=== PATIENT | female | born 1995 | race American Indian/Alaskan Native ===

== ENCOUNTER 2016-12-28 11:15 | Emergency (ER) | payer SELFPAY ==
[2016-12-28 11:39] VITALS: BP 123/62
[2016-12-28 12:26] LABS: Bacteria,Urine 1+ /HPF (Negative); Bilirubin,Urine NEG (Negative); Blood,Urine NEG (Negative); Ketones,Urine NEG (Negative); Leukocyte Esterase,Urine MOD (Negative); Mucus,Urine 2+ /HPF; Nitrite,Urine NEG (Negative); Protein,Urine <15 mg/dL mg/dL (Negative)
--- NOTE | 2016-12-30 01:34 | ED Elopement Review ---
ED Pt Elopement review - Results review Lab results: Laboratory Tests 12/28/16 11:52 Urine Color Yellow Urine Turbidity Clear Urine pH 6.0 Ur Specific [place] 1.026 Urine Protein <15 mg/dl Urine Glucose (UA) Neg Urine Ketones Neg Urine Blood Neg Urine Nitrite Neg Urine Bilirubin Neg Urine Urobilinogen 2.0 Ur Leukocyte Esterase Mod Urine WBC (Auto) 20.0 H Urine RBC (Auto) 9.0 U Epithel Cells (Auto) 9.0 Urine Bacteria (Auto) 1+ Urine Mucus 2+ Urine HCG, Qual Negative - Call Back decision Pt Call Back Decision: Call pt to return to ED JEANNINE (possible UTI, if sx need treatment, may also follow up with pmd for recheck)
== END 2016-12-28 18:42 | disposition left against medical advice (07) ==
LOC: ED 11:15
DX: R10.9 Unspecified abdominal pain (principal); Z53.21 Procedure and treatment not carried out due to patient leaving prior to being seen by health care provider
CPT/HCPCS: 81001; 81025

== ENCOUNTER 2017-01-01 20:04 | Emergency (ER) | payer SELFPAY ==
[2017-01-01 20:14] VITALS: BP 115/65
--- NOTE | 2017-01-02 14:11 | ED Elopement Review ---
ED Pt Elopement review - Call Back decision Pt Call Back Decision: No action required
== END 2017-01-01 20:07 | disposition left against medical advice (07) ==
LOC: ED 20:04
DX: R10.9 Unspecified abdominal pain (principal); F17.200 Nicotine dependence, unspecified, uncomplicated; Z53.21 Procedure and treatment not carried out due to patient leaving prior to being seen by health care provider

== ENCOUNTER 2017-01-08 03:34 | Emergency (ER) | payer SELFPAY | END 2017-01-08 04:43 | disposition left against medical advice (07) | LOC: ED 03:34 | DX: K08.89 Other specified disorders of teeth and supporting structures (principal); Z53.21 Procedure and treatment not carried out due to patient leaving prior to being seen by health care provider ==

== ENCOUNTER 2017-02-14 12:06 | Emergency (ER) | payer SELFPAY ==
[2017-02-14 12:40] VITALS: BP 142/91
--- NOTE | 2017-02-14 13:14 | Emergency Department Report ---
HPI - General Chief Complaint: Sore Throat Time Seen by Provider: 02/14/17 13:13 - HPI HPI: Patient here complaining that her throat hurts and I discussed this over 3 days plus she 7 some cramping on and off to her abdomen and this started yesterday. She says the cramping is 8 out of 10 to her abdomen and her throat sore throat is 8 out of 10 with swallowing. Not take any [id number] medication. Menstrual cycle was 02/01/2017. Denies any vaginal discharge or bleeding. Denies any nausea or vomiting. Eyes any back pain. Denies any fever or chills. Denies any coughing, difficulty breathing or chest pain. ED Past Medical Hx - Past Medical History Previous Medical History?: No Additional medical history: childbirth x 2 - Surgical History Past Surgical History?: Yes Additional Surgical History: Cesection x 2 - Family History Family history: no significant - Social History Smoking Status: Current Every Day Smoker Substance Use Type: None - Medications Home Medications: Home Medications Medication Instructions Recorded Confirmed Last Taken Type Acetaminophen/Codeine [Tylenol #3] 1 tab PO TID PRN #15 tab 06/18/15 Unknown Rx Famotidine [Pepcid] 10 mg PO BID #60 tablet 06/18/15 Unknown Rx Ondansetron [Zofran Odt] 4 mg PO TID #15 tab.rapdis 06/18/15 Unknown Rx Pnv Cmb#21/Iron/Folic Acid 1 each PO QDAY #30 tablet 06/18/15 Unknown Rx [ Complete Caplet] Cetirizine HCl [ZyrTEC] 10 mg PO 2XWHS #14 capsule 02/14/17 Unknown Rx Fluticasone [Flonase] 1 spray NS QDAY #1 bottle 02/14/17 Unknown Rx Sulfamethoxazole/Trimethoprim 1 each PO BID #14 tablet 02/14/17 Unknown Rx [Bactrim DS TAB] ED Review of Systems ROS: Stated complaint: CRAMPING/SORE THROAT Other details as noted in HPI Comment: All other systems reviewed and negative Constitutional: denies: chills, fever ENT: throat pain. denies: ear pain, dental pain, hearing loss, congestion Respiratory: no symptoms reported Cardiovascular: denies: chest pain, palpitations, edema, syncope Gastrointestinal: abdominal pain. denies: nausea, vomiting, diarrhea Genitourinary: denies: urgency, dysuria, frequency, hematuria, discharge, abnormal menses, dyspareunia Musculoskeletal: denies: back pain, joint swelling, arthralgia, myalgia Skin: denies: rash, lesions Physical Exam - Physical Exam Vital Signs: Vital Signs 02/14/17 12:34 Temperature 98.3 F Pulse Rate 88 Blood Pressure 142/91 O2 Sat by Pulse 16 L Oximetry General: This is a 21-year-old female well-nourished well-developed in no acute distress. Physical Exam: Head: Normocephalic atraumatic Mouth: Moist, no pharyngeal exudate or erythema. Uvula is midline and oral airway is patent. No facial swelling. No peritonsillar abscesses. Nose: Congested with erythema to mucosa. Clear Drainage. Maxillary and frontal sinuses nontender to palpate Neck: Supple, no C-spine tenderness, no tracheal deviation. Nontender to palpate. no adenopathy Ears: Bilateral TMs congested without erythema. Bilateral EAC without any redness swelling or drainage. Abdomen: Soft, nontender to palpate in all quadrants, normal bowel sounds in all quadrant and negative CVA tenderness bilaterally. Back: No vertebral or paraspinal tenderness. Full range of motion Eyes: Bilateral pupils equal and reactive to light, bilateral EOM intact. Bilateral sclera and conjunctiva without injection. Normal accommodation. Lungs: Cleart to auscultate bilaterally no rhonchi wheezes or rales. Normal work of breathing extremity; No CCE. +2 pulses. No neurovascular compromise Cardiovascular: S1-S2, regular rate rhythm. No murmurs. Skin: clean Dry and intact no rash no lesions Psych: Normal mood and behavior ED Course Vital Signs 02/14/17 12:34 Temperature 98.3 F Pulse Rate 88 Blood Pressure 142/91 O2 Sat by Pulse 16 L Oximetry Vital Signs 02/14/17 02/14/17 12:34 14:36 Temperature 98.3 F Pulse Rate 88 80 Respiratory 18 Rate Blood Pressure 142/91 O2 Sat by Pulse 16 L 100 Oximetry - Reevaluation(s) Reevaluation #1: 02/14/17 14:37 Patient stable throughout ED stay. ED Medical Decision Making - Lab Data Lab Results 02/14/17 Range/Units 13:13 Urine Color Yellow (Yellow) Urine Turbidity Clear (Clear) Urine pH 6.0 (5.0-7.0) Ur Specific [place] 1.019 (1.003-1.030) Urine Protein <15 mg/dl (Negative) mg/dL Urine Glucose (UA) Negative (Negative) mg/dL Urine Ketones Negative (Negative) mg/dL Urine Blood Negative (Negative) Urine Nitrite Negative (Negative) Urine Bilirubin Negative (Negative) Urine Urobilinogen 0.0 (<2.0) mg/dL Ur Leukocyte Esterase Mod (Negative) Urine WBC (Auto) 10.0 H (0.0-6.0) /HPF Urine RBC (Auto) 7.0 (0.0-6.0) /HPF Urine HCG, Qual Negative (Negative) Urine culture pending Strep test is negative and cultures are pending. - Medical Decision Making ED course: Urinary tract infection, upper respiratory tract infection and acute pharyngitis. I discussed with diagnosis and treatment plan the patient and instructed her that she'll need to follow-up with her primary care physician in 3-5 days. That have a primary care so I instructed her to follow up with [facility]. Prescription given for Bactrim DS #14, Zyrtec, Flonase. I discussed the patient that her urine positive for bacteria and negative for and her strep test is negative cultures are pending. I chose Bactrim for Macrobid because this is about patient can't afford since it' s from [employer]. Critical care attestation.: If time is entered above; I have spent that time in minutes in the direct care of this critically ill patient, excluding procedure time. ED Disposition Clinical Impression: Upper respiratory infection, acute, Acute cystitis without hematuria Acute pharyngitis Qualifiers: Pharyngitis/tonsillitis etiology: unspecified etiology Qualified Code(s): J02.9 - Acute pharyngitis, unspecified Disposition: DISCHARGED TO HOME OR SELFCARE Is pt being admited?: No Does the pt Need Aspirin: No Condition: Stable Instructions: Urinary Tract Infection in Women (ED), Upper Respiratory Infection (ED), Viral Syndrome (ED), Pharyngitis (ED) Additional Instructions: You can gargle with warm salt water Take Medication as prescribed especially antibiotic. Prescriptions: Cetirizine HCl [ZyrTEC] 10 mg PO 2XWHS #14 capsule Fluticasone [Flonase] 1 spray NS QDAY #1 bottle Sulfamethoxazole/Trimethoprim [Bactrim DS TAB] 1 each PO BID #14 tablet Referrals: [facility] [Outside] - 3-5 Days Forms: Work/School Release Form(ED)
[2017-02-14 13:49] LABS: Bilirubin,Urine Negative (Negative); Ketones,Urine Negative (Negative)
[2017-02-14 13:50] LABS: Blood,Urine Negative (Negative); Leukocyte Esterase,Urine MOD (Negative); Nitrite,Urine Negative (Negative); Protein,Urine <15 mg/dL mg/dL (Negative)
[2017-02-14 16:53] LABS: Mucus,Urine 1+ /HPF
== END 2017-02-14 15:00 | disposition home or self-care (01) ==
LOC: ED 12:06
DX: J02.9 Acute pharyngitis, unspecified (principal); J06.9 Acute upper respiratory infection, unspecified; N30.00 Acute cystitis without hematuria; F17.200 Nicotine dependence, unspecified, uncomplicated
CPT/HCPCS: 81001; 81025; 87086; 87116; 87430; 99283

== ENCOUNTER 2017-04-19 10:57 | Emergency (ER) | payer OTHER ==
[2017-04-19 11:24] LABS: Basophils % (Auto) 1.1 % (0.0-1.8); Eosinophils % (Auto) 5.6 % (0.0-4.3); Hematocrit 35.2 % (30.3-42.9); Hemoglobin 11.2 gm/dl (10.1-14.3); Mean Corpuscular HGB Conc 32 % (30-34); Mean Corpuscular Volume 71 fl (79-97); Platelet Count 288 K/mm3 (140-440); Red Blood Count 4.96 M/mm3 (3.65-5.03); White Blood Count 5.6 K/mm3 (4.5-11.0)
[2017-04-19 11:27] LABS: Mean Corpuscular Hemoglobin 23 pg (28-32)
[2017-04-19 12:06] LABS: Bilirubin,Urine NEG (Negative); Blood,Urine NEG (Negative); Ketones,Urine NEG (Negative); Leukocyte Esterase,Urine NEG (Negative); Mucus,Urine FEW /HPF; Nitrite,Urine NEG (Negative); Protein,Urine <15 mg/dL mg/dL (Negative)
[2017-04-19 15:09] VITALS: BP 118/60
--- NOTE | 2017-04-19 15:36 | Ultrasound Report ---
FINAL REPORT PROCEDURE: US OB \T\lt; = 14 WEEKS FETUS TECHNIQUE: Real-time transabdominal and transvaginal sonography of the uterus, placenta, amniotic fluid, adnexa, and fetus was performed with image documentation. Measurements were obtained to determine age/size. M-mode Doppler was used to document heartbeat. CPT 82121 and 56855 HISTORY: abd pain preg COMPARISON: No prior studies are available for comparison. FINDINGS: ADDITIONAL GESTATION: None. Uterus measures 7.9 cm in length. No IUP is identified. Endometrial thickness is 1.5 cm. No uterine masses are seen. Right ovary measures 3.2 x 2.1 x 2.6 cm. Left ovary measures 3.0 x 1.5 x 2.1 cm. Normal color Doppler flow seen in the ovaries. 2.4 cm complex area in the right ovary is probably a collapsed cyst. Moderate free fluid is seen in the right adnexa and cul-de-sac. IMPRESSION: No IUP or ectopic is seen. Correlation with serial quantitative beta HCG levels is recommended. Probable collapsed cyst is seen in the right ovary with moderate free fluid in the right adnexa and cul-de-sac.
--- NOTE | 2017-04-19 15:37 | Ultrasound Report ---
FINAL REPORT PROCEDURE: US OB TRANSVAGINAL TECHNIQUE: Real-time transabdominal and transvaginal sonography of the uterus, placenta, amniotic fluid, adnexa, and fetus was performed with image documentation. Measurements were obtained to determine age/size. M-mode Doppler was used to document heartbeat. CPT 92201 and 73557 HISTORY: abd pain preg COMPARISON: No prior studies are available for comparison. FINDINGS: ADDITIONAL GESTATION: None. Uterus measures 7.9 cm in length. No IUP is identified. Endometrial thickness is 1.5 cm. No uterine masses are seen. Right ovary measures 3.2 x 2.1 x 2.6 cm. Left ovary measures 3.0 x 1.5 x 2.1 cm. Normal color Doppler flow seen in the ovaries. 2.4 cm complex area in the right ovary is probably a collapsed cyst. Moderate free fluid is seen in the right adnexa and cul-de-sac. IMPRESSION: No IUP or ectopic is seen. Correlation with serial quantitative beta HCG levels is recommended. Probable collapsed cyst is seen in the right ovary with moderate free fluid in the right adnexa and cul-de-sac.
--- NOTE | 2017-04-19 18:58 | Emergency Department Report ---
ED General Adult HPI - General Chief complaint: Urogenital-Female Stated complaint: / ABD PAIN Time Seen by Provider: 04/19/17 13:42 Source: patient Mode of arrival: Ambulatory Limitations: No Limitations - History of Present Illness Initial comments: Patient presents to the emergency department complaining of vaginal spotting. Apparently her menses was 8. She has some vague lower pelvic cramping since yesterday but no persistent pain. She denied dysuria fever chills nausea or vomiting. She states she had had 2 prior pregnancies. -: Gradual Location: pelvis Radiation: non-radiation Severity scale (0 -10): 0 Quality: other (cramping) Consistency: now resolved Improves with: none Worsens with: none Associated Symptoms: denies other symptoms Treatments Prior to Arrival: none - Related Data Home Medications Medication Instructions Recorded Confirmed Last Taken No Known Home Medications [No 04/19/17 04/19/17 Unknown Reported Home Medications] Allergies Allergy/AdvReac Type Severity Reaction Status Date / Time No Known Allergies Allergy Verified 04/19/17 11:06 ED Review of Systems ROS: Stated complaint: / ABD PAIN Other details as noted in HPI Constitutional: denies: chills, fever Eyes: denies: eye pain, eye discharge, vision change ENT: denies: ear pain, throat pain Respiratory: denies: cough, shortness of breath, wheezing Cardiovascular: denies: chest pain, palpitations Endocrine: no symptoms reported Gastrointestinal: abdominal pain. denies: nausea, diarrhea Genitourinary: as per HPI. denies: urgency, dysuria, discharge Musculoskeletal: denies: back pain, joint swelling, arthralgia Skin: denies: rash, lesions Neurological: denies: headache, weakness, paresthesias Psychiatric: denies: anxiety, depression Hematological/Lymphatic: denies: easy bleeding, easy bruising ED Past Medical Hx - Past Medical History Previous Medical History?: No Additional medical history: childbirth x 2 - Surgical History Additional Surgical History: Cesection x 2 - Social History Smoking Status: Former Smoker Substance Use Type: None - Medications Home Medications: Home Medications Medication Instructions Recorded Confirmed Last Taken Type No Known Home Medications [No 04/19/17 04/19/17 Unknown History Reported Home Medications] ED Physical Exam - General Limitations: No Limitations General appearance: alert, in no apparent distress - Head Head exam: Present: atraumatic, normocephalic - Eye Eye exam: Present: normal appearance. Absent: scleral icterus - ENT ENT exam: Present: normal exam, mucous membranes moist - Neck Neck exam: Present: normal inspection. Absent: tenderness, meningismus - Respiratory Respiratory exam: Present: normal lung sounds bilaterally. Absent: respiratory distress - Cardiovascular Cardiovascular Exam: Present: regular rate, normal rhythm. Absent: systolic murmur, diastolic murmur, rubs, gallop - GI/Abdominal GI/Abdominal exam: Present: soft, normal bowel sounds. Absent: distended, tenderness, guarding, rebound, rigid - Extremities Exam Extremities exam: Present: normal inspection - Back Exam Back exam: Present: normal inspection - Neurological Exam Neurological exam: Present: alert, oriented X3, CN II-XII intact. Absent: motor sensory deficit - Psychiatric Psychiatric exam: Present: normal affect, normal mood - Skin Skin exam: Present: warm, dry, intact, normal color. Absent: rash ED Course Vital Signs 04/19/17 04/19/17 04/19/17 11:01 13:45 15:08 Temperature 98.6 F 98.3 F Pulse Rate 74 80 Respiratory 17 16 16 Rate Blood Pressure 115/75 Blood Pressure 118/60 [Left] O2 Sat by Pulse 100 100 100 Oximetry - Reevaluation(s) Reevaluation #1: The patient was informed that we would obtain an ultrasound and that she was . These tests were ordered. However the nurse informed me that shortly thereafter the patient eloped. 04/19/17 18:57 ED Medical Decision Making - Lab Data Result diagrams: 04/19/17 11:10 Laboratory Results - last 24 hr 04/19/17 04/19/17 04/19/17 11:10 11:10 11:13 WBC 5.6 RBC 4.96 Hgb 11.2 Hct 35.2 MCV 71 L MCH 23 L MCHC 32 RDW 16.0 H Plt Count 288 Lymph % (Auto) 44.8 H [place] % (Auto) 8.5 H Eos % (Auto) 5.6 H Baso % (Auto) 1.1 Lymph # 2.5 [place] # 0.5 Eos # 0.3 Baso # 0.1 Seg Neutrophils % 40.0 Seg Neutrophils # 2.3 HCG, Quant 656.2 H Urine Color Urine Turbidity Urine pH Ur Specific [place] Urine Protein Urine Glucose (UA) Urine Ketones Urine Blood Urine Nitrite Urine Bilirubin Urine Urobilinogen Ur Leukocyte Esterase Urine WBC (Auto) Urine RBC (Auto) U Epithel Cells (Auto) Urine Mucus Blood Type O POSITIVE Antibody Screen TNR ITZEL Antibody Screen Negative 04/19/17 11:49 WBC RBC Hgb Hct MCV MCH MCHC RDW Plt Count Lymph % (Auto) [place] % (Auto) Eos % (Auto) Baso % (Auto) Lymph # [place] # Eos # Baso # Seg Neutrophils % Seg Neutrophils # HCG, Quant Urine Color Yellow Urine Turbidity Clear Urine pH 6.0 Ur Specific [place] 1.024 Urine Protein <15 mg/dl Urine Glucose (UA) Neg Urine Ketones Neg Urine Blood Neg Urine Nitrite Neg Urine Bilirubin Neg Urine Urobilinogen 2.0 Ur Leukocyte Esterase Neg Urine WBC (Auto) 2.0 Urine RBC (Auto) 2.0 U Epithel Cells (Auto) 4.0 Urine Mucus Few Blood Type Antibody Screen ITZEL Antibody Screen Critical care attestation.: If time is entered above; I have spent that time in minutes in the direct care of this critically ill patient, excluding procedure time. ED Disposition Clinical Impression: First trimester bleeding Disposition: ELOPED Is pt being admited?: No Does the pt Need Aspirin: No Condition: Stable Referrals: PRIMARY [facility] [Primary Care Provider] - 3-5 Days Time of Disposition: 18:58
== END 2017-04-19 16:00 | disposition left against medical advice (07) ==
LOC: ED 10:57
DX: O20.9 Hemorrhage in early pregnancy, unspecified (principal); R10.9 Unspecified abdominal pain; Z3A.00 Weeks of gestation of pregnancy not specified
CPT/HCPCS: 36415; 76801; 76817; 81001; 84702; 85025; 86850; 86900; 86901

== ENCOUNTER 2017-06-23 10:03 | Emergency (ER) | payer SELFPAY ==
[2017-06-23 10:38] VITALS: BP 118/78
--- NOTE | 2017-06-23 10:49 | Emergency Department Report ---
Chief Complaint: Vaginal Bleeding Stated Complaint: VAGINAL BLEEDING - HPI History of Present Illness: 21F 14 weeks preg p/w vag bleed and pain, 14 weeks preg - ROS Review of Systems: 14 weeks preg - Exam Vital Signs: Vital Signs 06/23/17 10:32 Temperature 97.8 F Pulse Rate 68 Respiratory 16 Rate Blood Pressure 118/78 O2 Sat by Pulse 100 Oximetry Physical Exam: + suprapubic pain MSE screening note: Focused history and physical exam performed. Due to findings the following was ordered: MSE: r/o ectopic preg 1- us, urine, labs ED Disposition for MSE Condition: Stable
[2017-06-23 11:25] LABS: Basophils % (Auto) 0.6 % (0.0-1.8); Eosinophils % (Auto) 2.9 % (0.0-4.3); Hematocrit 37.6 % (30.3-42.9); Hemoglobin 12.1 gm/dl (10.1-14.3); Mean Corpuscular HGB Conc 32 % (30-34); Mean Corpuscular Volume 72 fl (79-97); Platelet Count 294 K/mm3 (140-440); Red Blood Count 5.22 M/mm3 (3.65-5.03); Red Cell Distribution Width 15.2 % (13.2-15.2); White Blood Count 6.3 K/mm3 (4.5-11.0)
[2017-06-23 11:26] LABS: Mean Corpuscular Hemoglobin 23 pg (28-32)
[2017-06-23 11:35] LABS: Anion Gap 18 mmol/L; Blood Urea Nitrogen 9 mg/dL (7-17); Calcium 8.9 mg/dL (8.4-10.2); Carbon Dioxide 21 mmol/L (22-30); Chloride 100.1 mmol/L (98-107); Glucose 84 mg/dL (65-100); Potassium 3.9 mmol/L (3.6-5.0); Sodium 135 mmol/L (137-145)
[2017-06-23 11:50] LABS: Bilirubin,Urine NEG (Negative); Blood,Urine SM (Negative); Ketones,Urine NEG (Negative); Leukocyte Esterase,Urine SM (Negative); Mucus,Urine FEW /HPF; Nitrite,Urine NEG (Negative); Protein,Urine <15 mg/dL mg/dL (Negative); Urobilinogen,Urine < 2.0 mg/dL (<2.0)
--- NOTE | 2017-06-23 14:02 | Ultrasound Report ---
OB ULTRASOUND GREATER THAN 14 WEEKS INDICATION: 14 weeks with vaginal bleeding. COMPARISON: 04/19/2017 TECHNIQUE: Transabdominal grayscale ultrasound with Doppler interrogation. Gestation: [place] Position: Transverse, head maternal left Amniotic Fluid: WNL (< 24 weeks, subjective) Placenta: Fundal Placental Grade: 0 Heart Rate: 161 BPM Cervical length: 3.2 cm (Normal > 3 cm) BPD: 2.5 cm = 14 w 2 d AC: 7.5 cm = 14 w 0 d FL: 1.2 cm = 13 w 4 d HC/AC Ratio: 1.2 Cephalic Index: 81.8 LMP: Uncertain US Gest. Age = 14 w 0 d EDC: 12/22/2017 CONCLUSION: Single, viable intrauterine gestation with ultrasound estimated age of 14 weeks and zero days and EDC of 12/22/2017, currently in transverse lie with details, as above. Thank you for the opportunity to participate in this patient's care.
--- NOTE | 2017-06-23 15:25 | Emergency Department Report ---
ED Female HPI - General Chief complaint: Vaginal Bleeding Stated complaint: VAGINAL BLEEDING Time Seen by Provider: 06/23/17 15:23 Source: patient Mode of arrival: Ambulatory Limitations: No Limitations - History of Present Illness Initial comments: 21-year-old female past medical history none presents with complaint of vaginal spotting this morning. Some crampy pain this morning which has since subsided. No nausea no vomiting no fever no chills reported. Patient is currently 04/19/17 lmp MD Complaint: vaginal bleeding -: This morning Radiation: suprapubic Severity: mild Severity scale (0 -10): 2 Quality: cramping Consistency: now resolved Improves with: none Are you Now?: Yes - Related Data Sexually active: Yes Previous Rx's Medication Instructions Recorded Last Taken Type Nitrofurantoin [place]/M-Cryst 100 mg PO Q12HR #14 capsule 06/23/17 Unknown Rx [Macrobid CAP] Vit No.130/Iron/FA 1 each PO QDAY #30 tablet 06/23/17 Unknown Rx [ Tablet] Allergies Allergy/AdvReac Type Severity Reaction Status Date / Time No Known Allergies Allergy Verified 04/19/17 11:06 ED Review of Systems ROS: Stated complaint: VAGINAL BLEEDING Other details as noted in HPI Constitutional: denies: chills, fever Eyes: denies: eye pain, eye discharge, vision change ENT: denies: ear pain, throat pain Respiratory: denies: cough, shortness of breath, wheezing Cardiovascular: denies: chest pain, palpitations Endocrine: no symptoms reported Gastrointestinal: denies: abdominal pain, nausea, diarrhea Genitourinary: as per HPI. denies: urgency, dysuria, discharge Musculoskeletal: denies: back pain, joint swelling, arthralgia Skin: denies: rash, lesions Neurological: denies: headache, weakness, paresthesias Psychiatric: denies: anxiety, depression Hematological/Lymphatic: denies: easy bleeding, easy bruising ED Past Medical Hx - Past Medical History Previous Medical History?: No Additional medical history: childbirth x 2 - Surgical History Additional Surgical History: Cesection x 2 - Social History Smoking Status: Never Smoker Substance Use Type: None - Medications Home Medications: Home Medications Medication Instructions Recorded Confirmed Last Taken Type Nitrofurantoin [place]/M-Cryst 100 mg PO Q12HR #14 capsule 06/23/17 Unknown Rx [Macrobid CAP] Vit No.130/Iron/FA 1 each PO QDAY #30 tablet 06/23/17 Unknown Rx [ Tablet] ED Physical Exam - General Limitations: No Limitations General appearance: alert, in no apparent distress - Head Head exam: Present: atraumatic, normocephalic - Eye Eye exam: Present: normal appearance, PERRL, EOMI - ENT ENT exam: Present: mucous membranes moist - Neck Neck exam: Present: normal inspection, full ROM - Respiratory Respiratory exam: Present: normal lung sounds bilaterally. Absent: respiratory distress - Cardiovascular Cardiovascular Exam: Present: regular rate, normal rhythm. Absent: systolic murmur, diastolic murmur, rubs, gallop - GI/Abdominal GI/Abdominal exam: Present: soft (nontender nondistended), normal bowel sounds - External exam: Present: normal external exam Speculum exam: Present: normal speculum exam Bi-manual exam: Present: normal bi-manual exam - Extremities Exam Extremities exam: Present: normal inspection - Back Exam Back exam: Present: normal inspection - Neurological Exam Neurological exam: Present: alert, oriented X3, CN II-XII intact, normal gait - Psychiatric Psychiatric exam: Present: normal affect, normal mood - Skin Skin exam: Present: warm, dry, intact, normal color. Absent: rash ED Course Vital Signs 06/23/17 10:32 Temperature 97.8 F Pulse Rate 68 Respiratory 16 Rate Blood Pressure 118/78 O2 Sat by Pulse 100 Oximetry ED Medical Decision Making - Lab Data Result diagrams: 06/23/17 10:52 06/23/17 11:00 - Medical Decision Making a/p: threatened AB, vaginal bleeding during 1- US shows IUP, Pt is O+ bloodtype 2- cbc unremarkable 3- UA shows leuks, will cover empirically 4- f/u with OBGYN, I advised pt to return to ED for any persistent nausea, vomiting, heavy vaginal bleeding and that any bleeding before 20 weeks may result on spontaneous misscarriage. pt states she understood these instructions Critical care attestation.: If time is entered above; I have spent that time in minutes in the direct care of this critically ill patient, excluding procedure time. ED Disposition Clinical Impression: Vaginal bleeding during , antepartum Disposition: TO HOME OR SELFCARE Is pt being admited?: No Does the pt Need Aspirin: No Condition: Stable Instructions: Threatened Miscarriage (ED), Urinary Tract Infection in Women (ED ) Prescriptions: Nitrofurantoin [place]/M-Cryst [Macrobid CAP] 100 mg PO Q12HR #14 capsule Vit No.130/Iron/FA [ Tablet] 1 each PO QDAY #30 tablet Referrals: [facility] [Provider Group] - 3-5 Days [facility] [Provider Group] - 3-5 Days Forms: Accompanied Note, Work/School Release Form(ED)
== END 2017-06-23 15:54 | disposition home or self-care (01) ==
LOC: ED 10:03
DX: O26.852 Spotting complicating pregnancy, second trimester (principal); Z3A.14 14 weeks gestation of pregnancy
CPT/HCPCS: 36415; 76805; 80048; 81001; 84702; 85025; 86850; 86900; 86901; 99284

== ENCOUNTER 2017-10-23 16:51 | Outpatient (CLI) | payer MEDICAID ==
[2017-10-23 18:17] VITALS: BP 108/70
[2017-10-23] MEDS ORDERED: LACTATED RINGERS 1,000 ML IV ONE (18:26)
[2017-10-23 18:28] LABS: Bacteria,Urine 1+ /HPF (Negative); Bilirubin,Urine NEG (Negative); Blood,Urine NEG (Negative); Color,Urine Yellow (Yellow); Mucus,Urine 1+ /HPF; Nitrite,Urine NEG (Negative); Protein,Urine <15 mg/dL mg/dL (Negative)
--- NOTE | 2017-10-23 20:50 | Ultrasound Report ---
FINAL REPORT PROCEDURE: US OB BPP WO NON-STRESS TECHNIQUE: Real-time limited sonographic examination was performed for evaluation of size, position, heartbeat, fluid volume for each fetus with image documentation (1 or more fetuses). CPT 83180 HISTORY: WELL BEING COMPARISON: No prior studies are available for comparison. FINDINGS: biophysical profile: breathing movements: 2. movements: 2. posterior and tone: 2. Qualitative amniotic fluid volume: 2. Total score: 8/8. Heart rate 160 beats per minute. IMPRESSION: Normal biophysical profile.
--- NOTE | 2017-10-24 14:13 | Ultrasound Report ---
History: well being Findings: Gestation: Single Position: Cephalic Amniotic Fluid: BANDAR = 14.9 cm Heart Rate: 160 BPM
== END 2017-10-23 19:49 | disposition home or self-care (01) ==
LOC: TRG 16:51
PROVIDERS: ATTEND Obstetrics & Gynecology
DX: Z34.93 Encounter for supervision of normal pregnancy, unspecified, third trimester (principal); Z3A.30 30 weeks gestation of pregnancy
CPT/HCPCS: 59025; 76815; 76819; 81001; J7120

== ENCOUNTER 2017-12-11 07:30 | Inpatient (IN) | payer MEDICAID ==
[2017-12-17] MEDS ORDERED: PEPCID IV ONE ×3 (11:37→15:17)
[2017-12-17] MEDS ORDERED: BICITRA PO ONE ×2 (11:37→15:17)
[2017-12-17] MEDS ORDERED: REGLAN IV ONE ×2 (11:37→15:17)
[2017-12-17] MEDS ORDERED: NORMOSOL-R PH 7.4 1,000 ML IV SCH ×2 (12:00→16:00)
[2017-12-17] MEDS ORDERED: PITOCin/NS 20 UNIT/1000ML DRIP 20 UNITS/1,000 ML BAG IV SCH ×3 (12:00→19:00)
[2017-12-17 12:42] LABS: Basophils % (Auto) 0.4 % (0.0-1.8); Eosinophils # (Auto) 0.1 K/mm3 (0.0-0.4); Eosinophils % (Auto) 1.4 % (0.0-4.3); Hematocrit 32.9 % (30.3-42.9); Hemoglobin 10.6 gm/dl (10.1-14.3); Lymphocytes # (Auto) 2.1 K/mm3 (1.2-5.4); Mean Corpuscular HGB Conc 32 % (30-34); Mean Corpuscular Volume 73 fl (79-97); Monocytes # (Auto) 0.6 K/mm3 (0.0-0.8); Monocytes % (Auto) 7.3 % (0.0-7.3); Platelet Count 220 K/mm3 (140-440); Red Blood Count 4.49 M/mm3 (3.65-5.03); Red Cell Distribution Width 14.2 % (13.2-15.2)
[2017-12-17 12:46] LABS: Mean Corpuscular Hemoglobin 24 pg (28-32)
[2017-12-17] MEDS ORDERED: REGLAN ONE (14:34)
--- NOTE | 2017-12-17 15:23 | History and Physical Report ---
History of Present Illness Date of examination: 12/17/17 Date of admission: 12/17/17 10:50 Chief complaint: Repeat C Section History of present illness: Pt is a 22yo BF EDC 12/22/17; EGA 39 2/7 weeks presents for a Repeat C Section. She received care at [facility] since 21 weeks and course has been unremarkable except for previous C Section x2. records are available and GBS is negative. Past History Past Medical History: no pertinent history Past Surgical History: section (x2) RESEARCH ASSISTANT MEMBER History: trichomonas Social history: no significant social history, single - Obstetrical History Expected Date of Delivery: 12/22/17 Actual Gestation: 39 Week(s) 2 Day(s) : 3 Medications and Allergies Allergies Allergy/AdvReac Type Severity Reaction Status Date / Time No Known Allergies Allergy Verified 04/19/17 11:06 Home Medications Medication Instructions Recorded Confirmed Last Taken Type Nitrofurantoin [place]/M-Cryst 100 mg PO Q12HR #14 capsule 06/23/17 Unknown Rx [Macrobid CAP] Vit No.130/Iron/Folic 1 each PO QDAY #30 tablet 06/23/17 Unknown Rx [ Tablet] Active Meds: Active Medications Citric Acid/Sodium Citrate (Bicitra) 30 ml PO ONCE ONE Stop: 12/17/17 15:18 Famotidine (Pepcid) 20 mg IV ONCE ONE Stop: 12/17/17 15:18 Parenteral Electrolytes (Normosol-R Ph 7.4) 1,000 mls @ 2,250 mls/hr IV PREOP RADHA Stop: 12/18/17 12:27 Oxytocin/Sodium Chloride (Pitocin/Ns 20 Unit/1000ml Drip) 20 units in 1,000 mls @ 0 mls/hr IV TITR RADHA Parenteral Electrolytes (Normosol-R Ph 7.4) 1,000 mls @ 2,250 mls/hr IV PREOP RADHA Stop: 12/18/17 16:27 Oxytocin/Sodium Chloride (Pitocin/Ns 20 Unit/1000ml Drip) 20 units in 1,000 mls @ 0 mls/hr IV TITR RADHA Metoclopramide HCl (Reglan) 10 mg IV ONCE ONE Stop: 12/17/17 15:18 Review of Systems All systems: negative - Vital Signs Vital signs: Vital Signs Pulse BP 96 H 107/73 12/17/17 11:27 12/17/17 11:27 Temp Pulse Resp BP Pulse Ox 96 H 107/73 12/17/17 11:27 12/17/17 11:27 - Physical Exam Breasts: Positive: deferred Cardiovascular: Regular rate Lungs: Positive: Clear to auscultation Abdomen: Positive: normal appearance Genitourinary (Female): Positive: normal external genitalia Uterus: Positive: enlarged Extremities: Positive: normal - Obstetrical FHR: category 1 Uterine Contraction Monitor Mode: External Results Result Diagrams: 12/17/17 12:23 Abnormal lab results 12/17/17 Range/Units 12:23 MCV 73 L (79-97) fl MCH 24 L (28-32) pg All other labs normal. Assessment and Plan - Patient Problems (1) 39 weeks gestation of Onset Date: 12/17/17 Current Visit: Yes Status: Acute Plan to address problem: A: IUP @ 39 2/7 weeks Previous C Section x 2 P: Admit to L&D for repeat C Section (2) Previous section Onset Date: 12/17/17 Current Visit: Yes Status: Acute
--- NOTE | 2017-12-17 16:49 | Anesthesia Consultation ---
Anesthesia Consult and Med Hx Date of service: 12/17/17 - Airway Anesthetic Teeth Evaluation: Good ROM Head & Neck: Adequate Mental/Hyoid Distance: Adequate Mallampati Class: Class II Intubation Access Assessment: Probably Good - Pre-Operative Health Status ASA Pre-Surgery Classification: ASA2 Proposed Anesthetic Plan: Epidural, Spinal - Pulmonary Hx Asthma: No COPD: No Hx Pneumonia: No - Cardiovascular System Hx Hypertension: No - Central Nervous System Hx Seizures: No Hx Psychiatric Problems: No - Endocrine Hx Renal Disease: No Hx End Stage Renal Disease: No Hx Hypothyroidism: No Hx Hyperthyroidism: No - Hematic Hx Anemia: No Hx Sickle Cell Disease: No - Other Systems Hx Alcohol Use: No Hx Obesity: Yes (BMI 35.9)
[2017-12-17] MEDS ORDERED: ZOFRAN IV PRN (16:50)
[2017-12-17] MEDS ORDERED: BENADRYL IV PRN (16:50)
[2017-12-17] MEDS ORDERED: PHENERGAN PO PRN (16:50)
[2017-12-17] MEDS ORDERED: PHENERGAN PR PRN (16:50)
[2017-12-17] MEDS ORDERED: NARCAN 0.4 MG/1 ML IV PRN ×2 (16:50→18:10)
[2017-12-17] MEDS ORDERED: DILAUDID IV PRN (16:50)
--- NOTE | 2017-12-17 16:50 | Anesthesia Day of Surgery ---
Anesthesia Day of Surgery - Day of Surgery Patient Examined: Yes Patient H&P Reviewed: Yes Patient is NPO: Yes
[2017-12-17] MEDS ORDERED: TORADOL IV PRN (16:52)
[2017-12-17] MEDS ORDERED: SODIUM CHLORIDE FLUSH SYRINGE 10 ML IV NR ×2 (17:00→19:00)
[2017-12-17] MEDS ORDERED: ANCEF/STERILE WATER 2 GM/20 ML IV ONE (17:17)
[2017-12-17] MEDS ORDERED: NACL 0.9% IR ONE (17:26)
[2017-12-17] MEDS ORDERED: WATER FOR IRRIG STERILE IR ONE (17:26)
[2017-12-17] MEDS ORDERED: ASTRAMORPH PF 10MG/10ML ONE (17:44)
--- NOTE | 2017-12-17 18:06 | Operative Report ---
Operative Report Operative Report: Date of procedure: 12/17/2017 Pre-operative diagnosis: 1. Intrauterine at 39-2/7 weeks 2. Previous 2 Post-operative diagnosis: Same Procedure name(s): Repeat low transverse section Surgeon: Sergio Alvarenga MD Opal Polisher: None Anesthesia: Spinal/epidural anesthesia by the RONALD Limon EBL: 500 mL Findings: A 2758 g male Apgars 5 at 1 minutes and 9 at 5 minutes. Clear amniotic fluid. Normal uterus. Normal tubes and ovaries bilaterally. Procedure: After the patient was prepped and draped in usual sterile fashion, and after satisfactory level of epidural anesthesia was obtained, the skin knife was used to make a transverse skin incision through the previous skin scar. The incision was excised down to layer of the fascia, which was nicked in the midline and extended laterally using the Bovie cautery. The rectus muscles were dissected off the rectus fascia both superiorly and inferiorly. The rectus bellies in the midline, and the peritoneum was entered under direct visualization. The peritoneal incision was extended superiorly and inferiorly. A bladder flap was created and the bladder blade was then placed. The uterus was scored in a curvilinear linear fashion, entered in the midline revealing clear amniotic fluid. The infant's head was delivered onto the surgical field, and the oropharynx and nasopharynx were bulb suctioned. The rest of the infant's body was delivered, cord was doubly clamped and cut and the was handed to the waiting respiratory team. Cord blood was then obtained. The placenta was manually removed from the uterus, and the uterus removed from its normal anatomical position. After gentle uterine lavage, the incision was inspected and found to be without extensions. It was then closed in 2 layers using 0 Vicryl suture in a running interlocking fashion, the second layer imbricating the first. After good hemostasis was achieved, copious amounts or irrigation was performed, and the gutters were suctioned free of blood and blood clots. The Tisseel sealant was sprayed across the uterine incision. The uterus was then returned to its normal anatomical position, and after excellent hemostasis assured, the peritoneum was re-approximated using 3- 0 Vicryl suture in a running interlocking fashion, and then the rectus muscles were re-approximated using 3-0 Vicryl suture in a [id number] configuration. The fascia was then re-approximated using 0 Vicryl suture in running interlocking fashion. The subcutaneous layer was made hemostatic using Bovie cautery, the Tisseel sealant was sprayed across the fascial incision and the skin edges re-approximated using 4-0 Vicryl suture in a sub-cuticular fashion. Patient tolerated the procedure well was transported to recovery in stable condition.
[2017-12-17] MEDS ORDERED: NORCO 5/325 PO PRN (18:10)
[2017-12-17] MEDS ORDERED: SENOKOT PO PRN (18:10)
[2017-12-17] MEDS ORDERED: MILK OF MAGNESIA PO PRN (18:10)
[2017-12-17] MEDS ORDERED: LANSINOH TP PRN (18:10)
[2017-12-17] MEDS ORDERED: TYLENOL PO PRN (18:10)
[2017-12-17] MEDS ORDERED: TUCKS PAD TP PRN (18:10)
[2017-12-17] MEDS ORDERED: NEO SYNEPHRINE/NS Syringe(OR USE) IV ONE (18:11)
[2017-12-17] MEDS ORDERED: D5LR 1,000 ML IV SCH (19:00)
[2017-12-17] MEDS ORDERED: ANCEF/NS 1 GM/50 ML 1 GM/50 ML BAG IV SCH (19:00)
[2017-12-17] MEDS: ceFAZolin 1 GM in NACL 0.9% 20 ML IV SCH (22:05)
[2017-12-18 05:42] LABS: Hematocrit 31.5 % (30.3-42.9); Hemoglobin 10.1 gm/dl (10.1-14.3)
[2017-12-18] MEDS: ceFAZolin 1 GM in NACL 0.9% 20 ML IV SCH (06:08)
[2017-12-18] MEDS: PERCOCET 5/325 PO PRN ×2 (08:05→16:30)
--- NOTE | 2017-12-18 08:50 | Progress Note ---
Assessment and Plan - Patient Problems (1) 39 weeks gestation of Onset Date: 12/17/17 Current Visit: Yes Status: Resolved (2) Previous section Onset Date: 12/17/17 Current Visit: Yes Status: Resolved (3) Status post Onset Date: 12/18/17 Current Visit: Yes Status: Resolved Plan to address problem: A: S/P Repeat C Section - POD #1 Doing well Nausea/vomiting - P: Continue RPOC Continue antiemetics and encourage ambulation Subjective - Subjective Date of service: 12/18/17 Principal diagnosis: s/p Repeat C Section - POD #1 Interval history: Pt is feeling well, complaining of nausea and vomiting. Bleeding improved. Patient reports: voiding normally, pain well controlled, ambulating normally, nauseated, no appetite normal, no dizzy ambulation, no flatus : doing well, bottle feeding Objective - Vital Signs Latest vital signs: Vital Signs Temp Pulse Resp BP BP Pulse Ox 12/18/17 04:00 98.6 F 78 18 103/79 12/18/17 00:00 98.6 F 69 18 107/76 12/17/17 20:30 98.6 F 77 16 108/66 12/17/17 19:17 97.7 F 12/17/17 19:10 97.7 F 65 17 109/63 100 12/17/17 19:05 66 15 111/65 100 12/17/17 19:00 66 16 104/63 100 12/17/17 18:55 70 17 113/67 100 12/17/17 18:50 71 16 112/74 100 12/17/17 18:45 62 17 109/66 99 12/17/17 18:40 67 7 L 112/69 99 12/17/17 18:35 65 11 L 107/65 99 12/17/17 18:30 61 9 L 109/60 99 12/17/17 18:25 63 18 106/61 99 12/17/17 18:20 65 20 107/63 100 12/17/17 18:16 62 13 108/46 99 12/17/17 18:13 97.7 F 12/17/17 18:12 97 12/17/17 11:27 96 H 107/73 Intake and Output 12/17/17 12/18/17 12/18/17 22:59 06:59 14:59 Intake Total 2300 300 Output Total 150 1100 Balance 2150 -800 Intake: IV 2300 Intake, Free Water 300 Output: Urine 150 1100 Indwelling Catheter 1100 Other: Total, Output Amount 800 Estimated Blood Loss 500 - Exam Breasts: Present: deferred Cardiovascular: Present: Regular rate Lungs: Present: Clear to auscultation Abdomen: Present: normal appearance, soft Uterus: Present: normal, firm, fundal height below umbilicus Extremities: Present: normal Incision: Present: normal, dry, intact, dressed - Labs Labs: Abnormal lab results 12/17/17 Range/Units 12:23 MCV 73 L (79-97) fl MCH 24 L (28-32) pg Laboratory Tests 12/17/17 12/17/17 12/18/17 12:23 12:23 04:50 WBC 8.5 RBC 4.49 Hgb 10.6 10.1 Hct 32.9 31.5 MCV 73 L MCH 24 L MCHC 32 RDW 14.2 Plt Count 220 Lymph % (Auto) 25.0 [place] % (Auto) 7.3 Eos % (Auto) 1.4 Baso % (Auto) 0.4 Lymph # 2.1 [place] # 0.6 Eos # 0.1 Baso # 0.0 Seg Neutrophils % 65.9 Seg Neutrophils # 5.6 Blood Type O POSITIVE Antibody Screen Negative
[2017-12-18 13:41] LABS: Alanine Aminotransferase 12 units/L (7-56); Albumin 3.1 g/dL (3.9-5); BUN/Creatinine Ratio 10; Blood Urea Nitrogen 6 mg/dL (7-17); Calcium 8.7 mg/dL (8.4-10.2); Hemolysis Index 3
[2017-12-18] MEDS ORDERED: BOOSTRIX IM ONE (18:11)
[2017-12-18] MEDS ORDERED: M-M-R II VACCINE SUB-Q ONE (18:11)
[2017-12-18] MEDS: MYLICON PO PRN (21:19)
[2017-12-18] MEDS: MOTRIN PO PRN (21:19)
[2017-12-19] MEDS: PERCOCET 5/325 PO PRN ×4 (00:05→21:16)
[2017-12-19] MEDS: MOTRIN PO PRN (05:09)
[2017-12-19] MEDS: MYLICON PO PRN (05:09)
[2017-12-19] MEDS ORDERED: BOOSTRIX IM ONE (06:00)
--- NOTE | 2017-12-19 08:40 | Progress Note ---
Assessment and Plan - Patient Problems (1) 39 weeks gestation of Onset Date: 12/17/17 Current Visit: Yes Status: Resolved (2) Previous section Onset Date: 12/17/17 Current Visit: Yes Status: Resolved (3) Status post Onset Date: 12/18/17 Current Visit: Yes Status: Resolved Plan to address problem: A: S/P Repeat C Section - POD #2 Doing well Nausea/vomiting - resolved P: May go home tomorrow Subjective - Subjective Date of service: 12/19/17 Principal diagnosis: s/p Repeat C Section - POD #2 Interval history: Pt is feeling well without complaints. Tolerating a reg diet without nausea or vomiting, ambulating and voiding without difficulty. Patient reports: appetite normal, voiding normally, pain well controlled, flatus , ambulating normally [place]: doing well, nursing well, bottle feeding Objective - Vital Signs Latest vital signs: Vital Signs Temp Pulse Resp BP Pulse Ox 12/19/17 00:00 98.6 F 70 18 106/67 12/18/17 17:44 98.6 F 70 18 101/68 100 12/18/17 12:33 97.4 F L 65 20 115/69 98 Intake and Output 12/18/17 12/19/17 12/19/17 22:59 06:59 14:59 Other: Voiding Method Toilet # Voids 1 - Exam Breasts: Present: deferred Cardiovascular: Present: Regular rate Lungs: Present: Clear to auscultation Abdomen: Present: normal appearance, soft Uterus: Present: normal, firm, fundal height below umbilicus Extremities: Present: normal Incision: Present: normal, dry, intact - Labs Labs: Abnormal lab results 12/18/17 Range/Units 12:55 Sodium 134 L (137-145) mmol/L BUN 6 L (7-17) mg/dL Creatinine 0.6 L (0.7-1.2) mg/dL Total Protein 6.2 L (6.3-8.2) g/dL Albumin 3.1 L (3.9-5) g/dL
[2017-12-19] MEDS: FEOSOL PO SCH (09:29)
[2017-12-19] MEDS: PRENATAL VITAMIN PO SCH (09:29)
[2017-12-20] MEDS: MYLICON PO PRN (02:50)
[2017-12-20] MEDS: MOTRIN PO PRN ×2 (02:50→08:34)
[2017-12-20] MEDS: FEOSOL PO SCH (08:34)
[2017-12-20] MEDS: PRENATAL VITAMIN PO SCH (08:34)
[2017-12-20] MEDS: PERCOCET 5/325 PO PRN (08:34)
[2017-12-20 09:00] VITALS: BP 131/75
--- NOTE | 2017-12-20 09:13 | Discharge Summary ---
Providers - Providers Date of Admission: 12/17/17 10:50 Date of discharge: 12/20/17 Attending physician: VERONICA MATHUR Primary care physician: VERONICA MATHUR Hospitalization Reason for admission: section, IUP at term Delivery: Procedure: section, repeat low transverse Episiotomy: none Incision: normal, dry, intact Other procedures: none complications: none Discharge diagnosis: IUP at term delivered Som[place] baby: male Hospital course: Pt is a 22yo BF EDC 12/22/17; EGA 39 2/ weeks who presented for a Repeat C Section. She received care at [facility] since 21 weeks and course has been unremarkable except for previous C Section x2. records were available and GBS was negative. She underwent an uncomplicated repeat C Section and tolerated the procedure well. By POD #2 she was tolerating a reg diet without nausea or vomiting, ambulating and voiding without difficulty, and was therefore discharged to home on POD #3 in stable condition. Condition at discharge: Good Disposition: DC-01 TO HOME OR SELFCARE - Discharge Diagnoses (1) 39 weeks gestation of Status: Resolved (2) Previous section Status: Resolved (3) Status post Status: Resolved Plan - Discharge Medications Prescriptions: Ferrous Sulfate [Feosol 325 MG tab] 325 mg PO BID #60 tablet HYDROcodone/APAP 5-325 [[place] 5/325] 1 each PO Q6HR PRN #30 tablet PRN Reason: Pain Ibuprofen [Motrin] 800 mg PO Q8HR PRN #30 tablet PRN Reason: Moder Pain Unrelieved By [place] Vit Calc,Iron,Folic [ Vitamins] 1 each PO DAILY #30 tablet - Provider Discharge Summary Activity: routine, no sex for 6 weeks, no heavy lifting 4 weeks, no strenuous exercise Diet: routine Instructions: routine Additional instructions: [] Smoking cessation referral if applicable(refer to patient education folder for contact #) [] Refer to [facility] Booklet Call your doctor immediately for: * Fever > 100.5 * Heavy vaginal bleeding ( >1 pad per hour) * Severe persistent headache * Shortness of breath * Reddened, hot, painful area to leg or breast * Drainage or odor from incision. * Keep incision clean and dry at all times and follow doctor's instructions regarding bathing/showering - Follow up plan Follow up: VERONICA MATHUR MD [Primary Care Provider] - 14 Days
== END 2017-12-20 11:50 | disposition home or self-care (01) | DRG 766 ==
LOC: APU 12-17 10:50 → OB 12-17 21:26
PROVIDERS: ADMIT Obstetrics & Gynecology; ATTEND Obstetrics & Gynecology
PROC: 10D00Z1 Extraction of Products of Conception, Low, Open Approach (ICD-10-PCS; principal; 2017-12-17)
PROC: 3E0234Z Introduction of Serum, Toxoid and Vaccine into Muscle, Percutaneous Approach (ICD-10-PCS; 2017-12-19)
DX: O34.211 Maternal care for low transverse scar from previous cesarean delivery (principal); Z3A.39 39 weeks gestation of pregnancy; Z37.0 Single live birth; Z23 Encounter for immunization; O99.214 Obesity complicating childbirth; E66.9 Obesity, unspecified; Z68.35 Body mass index [BMI] 35.0-35.9, adult
CPT/HCPCS: 36415; 80053; 85014; 85018; 85025; 86850; 86900; 86901; 90471; 90715; C9250; J0690; J1885; J2274; J2370; J2405; J2590; J2765; J7121; Q0169

== ENCOUNTER 2019-03-15 22:59 | Emergency (ER) | payer SELFPAY ==
[2019-03-15 23:12] VITALS: BP 137/87
== END 2019-03-16 03:15 | disposition left against medical advice (07) ==
LOC: ED 22:59
DX: M54.9 Dorsalgia, unspecified (principal); Z53.21 Procedure and treatment not carried out due to patient leaving prior to being seen by health care provider

== ENCOUNTER 2019-03-25 14:29 | Emergency (ER) | payer OTHER ==
[2019-03-25 14:56] VITALS: BP 123/93
--- NOTE | 2019-03-25 14:56 | Emergency Department Report ---
Blank Doc - Documentation Documentation: 23 y o female presents with abd cramps x yesterday states that bleeding from rectum and vag bleed started this am LMP:02/12/19 <JESU GALLARDO - Last Filed: 03/25/19 14:53> - Documentation Documentation: A physician and/or other qualified medical personnel has recommended that the patient receive further examination and/or treatment beyond their Medical Screening Exam. The risks and benefits were explained. The patient was informed of their right to emergency care. Patient left before final disposition of their medical condition. This note has been generated by me, Dr. Jatinder Norris III, MD, the Internet Manager for the emergency department. I have not seen this patient personally. <JATINDER NORRIS - Last Filed: 03/27/19 16:30>
[2019-03-25 15:24] LABS: Basophils # (Auto) 0.1 K/mm3 (0.0-0.1); Eosinophils # (Auto) 0.2 K/mm3 (0.0-0.4); Eosinophils % (Auto) 2.2 % (0.0-4.3); Hematocrit 34.6 % (30.3-42.9); Hemoglobin 11.2 gm/dl (10.1-14.3); Lymphocytes # (Auto) 2.2 K/mm3 (1.2-5.4); Lymphocytes % (Auto) 32.3 % (13.4-35.0); Mean Corpuscular HGB Conc 32 % (30-34); Monocytes # (Auto) 0.7 K/mm3 (0.0-0.8); Monocytes % (Auto) 10.1 % (0.0-7.3); Platelet Count 354 K/mm3 (140-440); Red Blood Count 5.03 M/mm3 (3.65-5.03); Red Cell Distribution Width 18.3 % (13.2-15.2)
[2019-03-25 15:26] LABS: Mean Corpuscular Volume 69 fl (79-97)
[2019-03-25 15:36] LABS: Bacteria,Urine 2+ /HPF (Negative); Bilirubin,Urine NEG (Negative); Blood,Urine NEG (Negative); Color,Urine Straw (Yellow); Protein,Urine <15 mg/dL mg/dL (Negative); Urobilinogen,Urine < 2.0 mg/dL (<2.0)
[2019-03-25 15:48] LABS: Alanine Aminotransferase 18 units/L (7-56); Albumin 3.9 g/dL (3.9-5); BUN/Creatinine Ratio 15; Blood Urea Nitrogen 12 mg/dL (7-17); Calcium 9.2 mg/dL (8.4-10.2); Hemolysis Index 5
== END 2019-03-25 15:34 | disposition left against medical advice (07) ==
LOC: ED 14:29
DX: O20.8 Other hemorrhage in early pregnancy (principal); Z3A.01 Less than 8 weeks gestation of pregnancy; Z53.21 Procedure and treatment not carried out due to patient leaving prior to being seen by health care provider
CPT/HCPCS: 36415; 80053; 81001; 84703; 85025

== ENCOUNTER 2019-04-05 09:17 | Emergency (ER) | payer OTHER ==
[2019-04-05 09:25] VITALS: BP 123/83
--- NOTE | 2019-04-05 09:53 | Emergency Department Report ---
ED General Adult HPI - General Chief complaint: Back Pain/Injury Stated complaint: 8WKS PREG/BACK PAIN/CRAMPING Time Seen by Provider: 04/05/19 09:41 Source: patient Mode of arrival: Ambulatory Limitations: No Limitations - History of Present Illness Initial comments: 23-year-old female present to the emergency room for intermittent lower back pain 1 week with one episode of vaginal spotting and right thigh cramping with movement. Patient states that the pain is worse in her back when she stands for long periods of time. Patient reports that her right side starts to cramp when she is getting comfortable in the bed. Patient has not started OB care she has no vitamins reports she is approximately 8 weeks she is 4 para 3 last menstrual period was 02/10/2019. Patient's has 3 C- section her youngest child is 1 years old first born was delivered early secondary to low fluids. Patient has no other complaints at this time she denies any dysuria. No fevers. Location: back Radiation: non-radiation Severity scale (0 -10): 1 Quality: aching Consistency: intermittent Improves with: rest Worsens with: movement, other (standing for long periods of time. ) - Related Data Previous Rx's Medication Instructions Recorded Last Taken Type Nitrofurantoin [place]/M-Cryst 100 mg PO Q12HR #14 capsule 06/23/17 Unknown Rx [Macrobid CAP] Vit No.130/Iron/Folic 1 each PO QDAY #30 tablet 06/23/17 3 Days Ago Rx [ Tablet] ~12/14/17 Ferrous Sulfate [Feosol 325 MG tab] 325 mg PO BID #60 tablet 12/17/17 Unknown Rx HYDROcodone/APAP 5-325 [[place] 1 each PO Q6HR PRN #30 tablet 12/17/17 Unknown Rx 5/325] Ibuprofen [Motrin] 800 mg PO Q8HR PRN #30 tablet 12/17/17 Unknown Rx Vit Calc,Iron,Folic 1 each PO DAILY #30 tablet 12/17/17 Unknown Rx [ Vitamins] Acetaminophen [Acetaminophen TAB] 1,000 mg PO Q6HR #24 tablet 04/05/19 Unknown Rx Vit-Fe Fumar-FA [ 1 tab PO QDAY #90 tablet 04/05/19 Unknown Rx Vitamin] Allergies Allergy/AdvReac Type Severity Reaction Status Date / Time No Known Allergies Allergy Verified 04/19/17 11:06 ED Review of Systems ROS: Stated complaint: 8WKS PREG/BACK PAIN/CRAMPING Other details as noted in HPI Comment: All other systems reviewed and negative Musculoskeletal: back pain ED Past Medical Hx - Past Medical History Previous Medical History?: Yes Hx Hypertension: No Hx Congestive Heart Failure: No Hx Diabetes: No Hx Deep Vein Thrombosis: No Hx Renal Disease: No Hx Sickle Cell Disease: No Hx Seizures: No Hx Asthma: No Hx COPD: No Hx HIV: No Additional medical history: childbirth x 2 - Surgical History Past Surgical History?: Yes Additional Surgical History: Cesection x 3 - Social History Smoking Status: Former Smoker Substance Use Type: None - Medications Home Medications: Home Medications Medication Instructions Recorded Confirmed Last Taken Type Nitrofurantoin [place]/M-Cryst 100 mg PO Q12HR #14 capsule 06/23/17 12/17/17 Unknown Rx [Macrobid CAP] Vit No.130/Iron/Folic 1 each PO QDAY #30 tablet 06/23/17 12/17/17 3 Days Ago Rx [ Tablet] ~12/14/17 Ferrous Sulfate [Feosol 325 MG tab] 325 mg PO BID #60 tablet 12/17/17 Unknown Rx HYDROcodone/APAP 5-325 [[place] 1 each PO Q6HR PRN #30 tablet 12/17/17 Unknown Rx 5/325] Ibuprofen [Motrin] 800 mg PO Q8HR PRN #30 tablet 12/17/17 Unknown Rx Vit Calc,Iron,Folic 1 each PO DAILY #30 tablet 12/17/17 Unknown Rx [ Vitamins] Acetaminophen [Acetaminophen TAB] 1,000 mg PO Q6HR #24 tablet 04/05/19 Unknown Rx Vit-Fe Fumar-FA [ 1 tab PO QDAY #90 tablet 04/05/19 Unknown Rx Vitamin] ED Physical Exam - General Limitations: No Limitations General appearance: alert, in no apparent distress - Head Head exam: Present: atraumatic, normocephalic - Eye Eye exam: Present: normal appearance - ENT ENT exam: Present: mucous membranes moist - Neck Neck exam: Present: normal inspection, full ROM - Respiratory Respiratory exam: Present: normal lung sounds bilaterally. Absent: respiratory distress - Cardiovascular Cardiovascular Exam: Present: regular rate, irregular rhythm. Absent: normal heart sounds - GI/Abdominal GI/Abdominal exam: Present: soft, normal bowel sounds - Back Exam Back exam: Present: normal inspection, full ROM. Absent: tenderness, muscle spasm - Neurological Exam Neurological exam: Present: alert, oriented X3, normal gait - Psychiatric Psychiatric exam: Present: normal affect, normal mood - Skin Skin exam: Present: warm, dry, intact, normal color. Absent: rash ED Course Vital Signs 04/05/19 09:21 Temperature 98.5 F Pulse Rate 71 Respiratory 18 Rate Blood Pressure 123/83 [Left] O2 Sat by Pulse 100 Oximetry ED Medical Decision Making - Lab Data Result diagrams: 04/05/19 09:43 04/05/19 09:43 - Radiology Data Radiology results: report reviewed Patient: HENOK YEAGER MR#: [id number] : 1995 Acct:[id number] Age/Sex: 23 / F ADM Date: 04/05/19 Loc: ED Attending Dr: Ordering Physician: RONALD ZAMBRANO Date of Service: 04/05/19 Procedure(s): US OB transvaginal Accession Number(s): [id number] cc: RONALD ZAMBRANO ULTRASOUND OB <=14 WEEKS FETUS ULTRASOUND OB TRANSVAGINAL HISTORY: Pelvic pain and cramping during , back pain COMPARISON: None. TECHNIQUE: Routine transabdominal OB ultrasound performed. FINDINGS: Uterus: The uterus is anteverted and at the upper limits of normal size. The uterus measures 9.1 x 6.2 x 8.0 cm. Gestational Sac: Well-defined oval shape and intrauterine in location. Yolk Sac: Normal in appearance. Fetus/Embryo: [place]-rump length of 1.1 cm, corresponding to an estimated gestational age of 7 week 1 day. Embryonic/ cardiac activity: 153bpm Placenta: Too small for evaluation. Amniotic fluid volume: Subjectively appropriate for gestational age. Ovaries: The right ovary is normal in size and appearance with normal blood flow, measuring 2.1 x 2.6 x 2.7 cm. The left ovary is normal in size and appearance with normal blood flow, measuring 2.4 x 1.0 x 2.7 cm. Hypoechoic space-occupying mass in the left ovary with peripheral vascularity is most likely the corpus luteum. Additional findings: None. IMPRESSION 1. Viable, single intrauterine as described. No acute abnormality is detected. Signer Name: Sergio Henriquez Jr, MD Signed: 04/05/2019 12:20 PM Workstation Name: [id number] Transcribed By: TTR Dictated By: SERGIO HENRIQUEZ JR, MD Electronically Authenticated By: SERGIO HENRIQUEZ JR, MD Signed Date/Time: 04/05/19 1220 DD/ 1215 TD/TT: - Medical Decision Making 23-year-old female with approximately 8 weeks . Patient comes in for back pain intermittent cramping with one episode of spotting. Ultrasound shows patient has 1 intrauterine gestational sac is approximately 7 weeks and 1 day. Discussed the patient that her ultrasound and lab work are stable. Patient can take Tylenol for pain management. Patient needs to start on vitamins is provided will write a prescription for that. Patient is to follow-up with an OB provider I will list several below for her convenience. Critical care attestation.: If time is entered above; I have spent that time in minutes in the direct care of this critically ill patient, excluding procedure time. ED Disposition Clinical Impression: Back pain affecting in first trimester Disposition: DC-01 TO HOME OR SELFCARE Is pt being admited?: No Does the pt Need Aspirin: No Condition: Stable Instructions: Acute Low Back Pain (ED) Additional Instructions: Please take Tylenol as needed for back pain. Your proximal to 7 weeks and 1 day . I have started you on vitamins. 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 I have listed several below for your convenience. Prescriptions: Acetaminophen [Acetaminophen TAB] 1,000 mg PO Q6HR #24 tablet Vit-Fe Fumar-FA [ Vitamin] 1 tab PO QDAY #90 tablet Referrals: RAÚL CARDONAWILLSHIRE MD ALONSO [Primary Care Provider] - 3-5 Days [facility] [Provider Group] - 3-5 Days [facility] [Provider Group] - 3-5 Days [facility] [Provider Group] - 3-5 Days Forms: Work/School Release Form(ED)
[2019-04-05 10:05] LABS: Bilirubin,Urine NEG (Negative); Blood,Urine NEG (Negative); Color,Urine Yellow (Yellow); Mucus,Urine 1+ /HPF; Protein,Urine <15 mg/dL mg/dL (Negative); Urobilinogen,Urine < 2.0 mg/dL (<2.0); WBC,Urine < 1.0 /HPF (0.0-6.0)
[2019-04-05 10:16] LABS: Hematocrit 34.4 % (30.3-42.9); Hemoglobin 11.4 gm/dl (10.1-14.3); Mean Corpuscular HGB Conc 33 % (30-34); Platelet Count 306 K/mm3 (140-440); Red Blood Count 4.96 M/mm3 (3.65-5.03); Red Cell Distribution Width 18.9 % (13.2-15.2)
[2019-04-05 10:19] LABS: Mean Corpuscular Volume 69 fl (79-97)
[2019-04-05 10:38] LABS: Alanine Aminotransferase 41 units/L (7-56); Albumin 3.7 g/dL (3.9-5); BUN/Creatinine Ratio 11; Blood Urea Nitrogen 8 mg/dL (7-17); Calcium 8.9 mg/dL (8.4-10.2); Hemolysis Index 20
[2019-04-05 11:25] LABS: Anisocytosis 1+; Hypochromasia Few; Ovalocytes Few; Platelet Estimate Consistent w Auto; Total Cells Counted 100
--- NOTE | 2019-04-05 12:24 | Ultrasound Report ---
ULTRASOUND OB <=14 WEEKS FETUS ULTRASOUND OB TRANSVAGINAL HISTORY: Pelvic pain and cramping during , back pain COMPARISON: None. TECHNIQUE: Routine transabdominal OB ultrasound performed. FINDINGS: Uterus: The uterus is anteverted and at the upper limits of normal size. The uterus measures 9.1 x 6 .2 x 8.0 cm. Gestational Sac: Well-defined oval shape and intrauterine in location. Yolk Sac: Normal in appearance. Fetus/Embryo: [place]-rump length of 1.1 cm, corresponding to an estimated gestational age of 7 week 1 day. Embryonic/ cardiac activity: 153bpm Placenta: Too small for evaluation. Amniotic fluid volume: Subjectively appropriate for gestational age. Ovaries: The right ovary is normal in size and appearance with normal blood flow, measuring 2.1 x 2. 6 x 2.7 cm. The left ovary is normal in size and appearance with normal blood flow, measuring 2.4 x 1.0 x 2.7 cm. Hypoechoic space-occupying mass in the left ovary with peripheral vascularity is most likely the corpus luteum. Additional findings: None. IMPRESSION 1. Viable, single intrauterine as described. No acute abnormality is detected. Signer Name: Sergio Henriquez Jr, MD Signed: 04/05/2019 12:20 PM Workstation Name: [id number]
== END 2019-04-05 13:48 | disposition left against medical advice (07) ==
LOC: ED 09:17
DX: O26.891 Other specified pregnancy related conditions, first trimester (principal); M54.5 Low back pain; Z3A.08 8 weeks gestation of pregnancy; Z87.891 Personal history of nicotine dependence; Z79.899 Other long term (current) drug therapy
CPT/HCPCS: 36415; 76801; 76817; 80053; 81001; 84702; 84703; 85007; 85025; 93005; 93010; 99284

== ENCOUNTER 2019-05-28 11:44 | Outpatient (CLI) | payer SELFPAY ==
[2019-05-28 13:01] VITALS: BP 104/75
[2019-05-28 13:24] LABS: Bilirubin,Urine NEG (Negative); Blood,Urine NEG (Negative); Color,Urine Straw (Yellow); Mucus,Urine FEW /HPF; Protein,Urine <15 mg/dL mg/dL (Negative); Urobilinogen,Urine < 2.0 mg/dL (<2.0); WBC,Urine < 1.0 /HPF (0.0-6.0)
[2019-05-28 13:39] LABS: Amphetamine Screen,Urine PRESUMPTIVE NEGATIVE; Benzodiazepines Screen,Urine PRESUMPTIVE NEGATIVE; Cannabinoid Screen,Urine PRESUMPTIVE NEGATIVE; Cocaine Screen,Urine PRESUMPTIVE NEGATIVE; Methadone Screen,Urine PRESUMPTIVE NEGATIVE; Opiate Screen,Urine PRESUMPTIVE NEGATIVE
[2019-05-28] MEDS ORDERED: LACTATED RINGERS 1,000 ML IV SCH (14:00)
== END 2019-05-28 14:25 | disposition home or self-care (01) ==
LOC: TRG 11:44
PROVIDERS: ATTEND Obstetrics & Gynecology
DX: O26.892 Other specified pregnancy related conditions, second trimester (principal); R10.2 Pelvic and perineal pain; Z3A.23 23 weeks gestation of pregnancy; Z79.899 Other long term (current) drug therapy; Z87.891 Personal history of nicotine dependence
CPT/HCPCS: 80307; 81001

== ENCOUNTER 2019-08-03 19:06 | Outpatient (CLI) | payer MEDICAID ==
[2019-08-03] MEDS ORDERED: LACTATED RINGERS 500 ML IV ONE (19:21)
[2019-08-03 20:23] LABS: Bilirubin,Urine NEG (Negative); Blood,Urine NEG (Negative); Color,Urine Yellow (Yellow); Mucus,Urine 1+ /HPF; Protein,Urine <15 mg/dL mg/dL (Negative)
[2019-08-03] MEDS ORDERED: ACETAMINOPHEN 500 MG TAB PO ONE (21:00)
== END 2019-08-03 21:38 | disposition home or self-care (01) ==
LOC: TRG 19:06
PROVIDERS: ATTEND Obstetrics & Gynecology
DX: O26.893 Other specified pregnancy related conditions, third trimester (principal); R05 Cough; R10.9 Unspecified abdominal pain; Z3A.28 28 weeks gestation of pregnancy
CPT/HCPCS: 81001